=== PATIENT | male | born 1990 | race Caucasian/White ===

== ENCOUNTER 2016-11-14 07:31 | Emergency (ER) | payer MEDICAID ==
[2016-11-14] MEDS ORDERED: IBUPROFEN 800 MG TABLET PO STA (07:47)
[2016-11-14] MEDS ORDERED: IBUPROFEN 800 MG TABLET PO ONE (07:51)
== END 2016-11-14 08:37 | disposition home or self-care (01) ==
DX: M67.911 Unspecified disorder of synovium and tendon, right shoulder (principal); I10 Essential (primary) hypertension; F17.200 Nicotine dependence, unspecified, uncomplicated
CPT/HCPCS: 73030; 99283; A9270

== ENCOUNTER 2017-01-25 09:03 | Emergency (ER) | payer MEDICAID ==
[2017-01-25 09:08] VITALS: BP 128/83
--- NOTE | 2017-01-25 09:10 | ED Physician Documentation ---
PD HPI UPPER EXT INJURY - Stated complaint Stated Complaint: SHOULDER PX - History obtained from History obtained from: Patient - History of Present Illness Location: Right, Shoulder Type of injury: Other (has had some pains in shoulder with lifting and rotational movements. He was lifting not too heavy object overhead this morning and felt sudden abrupt pain in right shoulder. Hurts for any ROM. Pain mostly anterior shoulder. No fall nor direct impact.) Where injury occurred: Home Timing - onset: Today Timing - details: Abrupt onset, Still present Improved by: No: Rest Worsened by: Moving, Palpating Associated symptoms: No: Weakness, Numbness, Tingling Similar symptoms before: No diagnosis Recently seen: Not recently seen Review of Systems Constitutional: denies: Fever, Chills Skin: denies: Rash, Lesions Neurologic: denies: Focal weakness, Numbness PD PAST MEDICAL HISTORY - Past Medical History Past Medical History: Yes Cardiovascular: Hypertension - Past Surgical History Past Surgical History: No - Present Medications Home Medications: Ambulatory Orders Medication Instructions Recorded Confirmed Citalopram [CeleXA] 40 mg PO DAILY 11/14/16 01/25/17 Verapamil HCl 10 mg PO DAILY 11/14/16 01/25/17 Hydrocodone/Acetaminophen [[place] 1 each PO Q6H PRN #20 tablet 01/25/17 5-325 Tablet] Naproxen [Naprosyn] 500 mg PO BID #20 tablet 01/25/17 - Allergies Allergies/Adverse Reactions: Allergies Allergy/AdvReac Type Severity Reaction Status Date / Time No Known Drug Allergies Allergy Verified 10/11/15 09:00 - Social History Does the pt smoke?: Yes Smoking Status: Current every day smoker Does the pt drink ETOH?: Yes Does the pt have substance abuse?: No - Immunizations Immunizations are current?: Yes - POLST Patient has POLST: No PD ED PE NORMAL - Vitals Vital signs reviewed: Yes - General General: Alert and oriented X 3, Well developed/nourished, Other (appears in pain and has guarding of the right shoulder movement. ) - Neck Neck: Supple, no meningeal sign, No bony TTP - Cardiac Cardiac: RRR, No murmur - Respiratory Respiratory: Clear bilaterally - Derm Derm: Normal color, Warm and dry - Extremities Extremities: Other (right shoulder tender anteriorly and some laterally. Some at AC joint but no stepoff. Pain with any attempted ROM, so limited exam that way. ) - Neuro Neuro: Alert and oriented X 3, No motor deficit, No sensory deficit Results - Vitals Vitals: Vital Signs - 24 hr 01/25/17 09:06 Temperature 36.7 C Heart Rate 80 Respiratory 18 Rate Blood Pressure 128/83 H O2 Saturation 97 Oxygen O2 Source Room air - Rads (name of study) right shoulder Radiology: Prelim report reviewed (normal) PD MEDICAL DECISION MAKING - ED course Complexity details: considered differential (sounds like rotator cuff tendonitis leading up to this, and now likely tear of some of it. Will sling but cautioned quite well about having some ROM often during day to prevent adhesions. NSAIDs and pain meds. Will refer to Ortho for evaluation once current degree of pain has improved. ), d/w patient Departure - Departure Disposition: 01 Home, Self Care Clinical Impression: Shoulder pain, acute Qualifiers: Laterality: right Qualified Code(s): M25.511 - Pain in right shoulder Injury of right rotator cuff Qualifiers: Encounter type: initial encounter Qualified Code(s): S46.001A - Unspecified injury of muscle(s) and tendon(s) of the rotator cuff of right shoulder, initial encounter Condition: Stable Record reviewed to determine appropriate education?: Yes Instructions: ED Torn Rotator Cuff Follow-Up: Ricky Hicks MD [Provider Admit Priv/Credential] - Prescriptions: Naproxen [Naprosyn] 500 mg PO BID #20 tablet Hydrocodone/Acetaminophen [[place] 5-325 Tablet] 1 each PO Q6H PRN #20 tablet PRN Reason: Pain Comments: Use sling short term as needed for pain, with gentle range of motion several times daily to keep any injured fibers from adhering/healing to the joint capsule. Naproxen twice daily and add Tylenol or hydrocodone as needed for pains. Call Ortho today for a follow up appt in about a week. Limited use of the right shoulder for now to allow early healing. Forms: Activity restrictions Discharge Date/Time: 01/25/17 10:20
[2017-01-25] MEDS ORDERED: HYDROcod/ACETAM 5/325 MG TABLET PO STA (09:30)
[2017-01-25] MEDS ORDERED: HYDROcod/ACETAM 5/325 MG TABLET ONE (09:38)
--- NOTE | 2017-01-25 10:19 | XRAY Preliminary Report ---
Exam: XR Shoulder 3 View RT IMPRESSION: Negative three-view right shoulder radiography. [facility] SITE ID: [id number]
--- NOTE | 2017-01-25 10:21 | XRAY Report ---
EXAM: RIGHT SHOULDER RADIOGRAPHY EXAM DATE: 01/25/2017 09:59 AM. CLINICAL HISTORY: Shoulder pain when lifting overhead today. COMPARISON: None. TECHNIQUE: 3 views. FINDINGS: Bones: Normal. No fracture or bone lesion. Joints: The glenohumeral and acromioclavicular joints are normal. Soft tissues: The included hemithorax is unremarkable. No soft tissue calcification. IMPRESSION: Negative three-view right shoulder radiography. [facility] Referring Provider Line: [phone] SITE ID: [id number]
== END 2017-01-25 10:20 | disposition home or self-care (01) ==
LOC: ED 09:03
DX: S46.001A Unspecified injury of muscle(s) and tendon(s) of the rotator cuff of right shoulder, initial encounter (principal); X50.0XXA Overexertion from strenuous movement or load, initial encounter; Y93.89 Activity, other specified; Y92.009 Unspecified place in unspecified non-institutional (private) residence as the place of occurrence of the external cause; I10 Essential (primary) hypertension; F17.200 Nicotine dependence, unspecified, uncomplicated
CPT/HCPCS: 73030; 99283; A9270

== ENCOUNTER 2017-05-01 14:01 | Emergency (ER) | payer MEDICAID ==
[2017-05-01 14:17] VITALS: BP 132/91
--- NOTE | 2017-05-01 14:39 | ED Physician Documentation ---
History of Present Illness - Stated complaint Stated Complaint: R FOOT PX - Chief complaint Chief Complaint: Ext Problem - History obtained from History obtained from: Patient - History of Present Illness Timing: How many weeks ago (1) Pain level max: 4 Pain level now: 4 - Additonal information Additional information: Patient is a 26-year-old male who complains of right foot pain for the past week , worse with walking, better with rest. States he walks on a concrete floor all day. Does not recall any specific injuries. The pain is on the medial aspect of the foot, plantar aspect. Review of Systems Constitutional: denies: Fever Neurologic: denies: Focal weakness, Numbness PD PAST MEDICAL HISTORY - Past Medical History Cardiovascular: Hypertension - Past Surgical History Past Surgical History: No - Present Medications Home Medications: Ambulatory Orders Medication Instructions Recorded Confirmed Citalopram [CeleXA] 40 mg PO DAILY 11/14/16 05/01/17 Verapamil HCl 120 mg PO DAILY 11/14/16 05/01/17 Ibuprofen [Motrin] 800 mg PO Q8H PRN #30 tablet 05/01/17 - Allergies Allergies/Adverse Reactions: Allergies Allergy/AdvReac Type Severity Reaction Status Date / Time No Known Drug Allergies Allergy Verified 05/01/17 14:34 - Social History Does the pt smoke?: Yes Smoking Status: Current every day smoker Does the pt drink ETOH?: Yes Does the pt have substance abuse?: No - Immunizations Immunizations are current?: Yes - POLST Patient has POLST: No PD ED PE NORMAL - Vitals Vital signs reviewed: Yes - General General: Alert and oriented X 3, No acute distress - Derm Derm: Warm and dry - Extremities Extremities: Other (Right foot - Tender to palpation along the plantar aspects of the foot, mainly on the medial aspect. No significant bony tenderness. Mild swelling. No erythema.) - Neuro Neuro: Alert and oriented X 3 - Psych Psych: Normal mood, Normal affect Results - Vitals Vitals: Vital Signs - 24 hr 05/01/17 14:10 Temperature 36.6 C Heart Rate 76 Respiratory 16 Rate Blood Pressure 132/91 H O2 Saturation 98 Oxygen O2 Source Room air - Rads (name of study) Right foot x-ray Radiology: Prelim report reviewed, EMP read contemporaneously, See rad report ( No acute findings. Calcaneal bone spurs. ) PD MEDICAL DECISION MAKING - ED course Complexity details: reviewed results, re-evaluated patient, considered differential, d/w patient ED course: Patient is a 26-year-old male who presents to the emergency department with what appears to be plantar fasciitis. Placed in a postoperative shoe and crutches for comfort. Will prescribe pain medication for home and follow-up with his doctor for further evaluation and care. May benefit from physical therapy. Patient counseled regarding signs and symptoms for which I believe and urgent re-evaluation would be necessary. Patient with good understanding of and agreement to plan and is comfortable going home at this time This document was made in part using voice recognition software. While efforts are made to proofread this document, sound alike and grammatical errors may occur. Patient also counseled to obtain shoes with a harder sole as well as arch supports. Has very flat arches on exam Departure - Departure Disposition: 01 Home, Self Care Clinical Impression: Plantar fasciitis Heel spur Qualifiers: Laterality: right Qualified Code(s): M77.31 - Calcaneal spur, right foot Condition: Good Instructions: ED Plantar Fasciitis, ED Heel Spur Follow-Up: your,doctor in 1 week [Other] Prescriptions: Ibuprofen [Motrin] 800 mg PO Q8H PRN #30 tablet PRN Reason: PAIN &/OR FEVER Comments: You appear to have plantar fasciitis, this can take several months to heal. It is important that you follow-up with your doctor for further evaluation. You should wear arch supports in your shoes as this will help decrease the inflammation. Return if you worsen. Discharge Date/Time: 05/01/17 16:04
--- NOTE | 2017-05-01 15:18 | XRAY Preliminary Report ---
Exam: XR Foot 3 View RT IMPRESSION: No acute findings. Calcaneal bone spurs. [facility] SITE ID: [id number]
--- NOTE | 2017-05-01 15:20 | XRAY Report ---
EXAM: RIGHT FOOT RADIOGRAPHY EXAM DATE: 05/01/2017 03:09 PM. CLINICAL HISTORY: Pain in right foot for one week, no known injury or trauma. COMPARISON: None. TECHNIQUE: 3 views. FINDINGS: Bones: Normal. No fractures or bone lesions. Joints: Normal. No subluxations. Soft Tissues: Normal. No soft tissue swelling. Plantar and posterior calcaneal bone spurs. IMPRESSION: No acute findings. Calcaneal bone spurs. [facility] Referring Provider Line: [phone] SITE ID: [id number]
[2017-05-01] MEDS ORDERED: IBUPROFEN 800 MG TABLET PO STA (15:35)
[2017-05-01] MEDS ORDERED: IBUPROFEN 800 MG TABLET PO ONE (15:51)
== END 2017-05-01 16:04 | disposition home or self-care (01) ==
LOC: ED 14:01
DX: M72.2 Plantar fascial fibromatosis (principal); M77.31 Calcaneal spur, right foot; I10 Essential (primary) hypertension; F17.200 Nicotine dependence, unspecified, uncomplicated
CPT/HCPCS: 73630; 99283; A9270

== ENCOUNTER 2017-07-18 13:58 | Emergency (ER) | payer MEDICAID ==
--- NOTE | 2017-07-18 15:25 | XRAY Preliminary Report ---
Exam: XR FOOT 3 VIEW RT IMPRESSION: No fracture or bony destruction. [facility] SITE ID: [id number]
--- NOTE | 2017-07-18 15:28 | XRAY Report ---
EXAM: RIGHT FOOT RADIOGRAPHY EXAM DATE: 07/18/2017 03:16 PM. CLINICAL HISTORY: Trauma and pain over mid foot and arch . COMPARISON: None. TECHNIQUE: 3 views. FINDINGS: Bones: No acute or subacute fracture is visualized. No bony destruction. Joints: Joint space and alignment appear satisfactory. The third cuneiform metatarsal joint is not se en and may be fused. Soft Tissues: There is a moderate-sized plantar calcaneal spur. IMPRESSION: No fracture or bony destruction. [facility] Referring Provider Line: [phone] SITE ID: [id number]
--- NOTE | 2017-07-18 15:40 | ED Physician Documentation ---
History of Present Illness - Stated complaint Stated Complaint: FT PX - Chief complaint Chief Complaint: Ext Problem - History obtained from History obtained from: Patient (pt here for evaluation of right foot pain. he states that approx 1 month ago he dropped anobject on his right foot. he came to the ER at that time and was told that he did not have a fracture. he states that he has had pain on the top of the foot and over the arch that has been worsening since then. he has had a walking shoe but that has not helped.) Review of Systems Constitutional: denies: Fever, Chills Skin: denies: Rash, Lesions Musculoskeletal: reports: Extremity pain (right foot), Joint pain (right ankle) , Pain with weight bearing. denies: Joint swelling Neurologic: reports: Other (no numbness or tingling to the right foot.). denies : Generalized weakness, Focal weakness PD PAST MEDICAL HISTORY - Past Medical History Cardiovascular: Hypertension - Past Surgical History Past Surgical History: No - Present Medications Home Medications: Ambulatory Orders Medication Instructions Recorded Confirmed Citalopram [CeleXA] 40 mg PO DAILY 11/14/16 07/18/17 Verapamil HCl 120 mg PO DAILY 11/14/16 07/18/17 - Allergies Allergies/Adverse Reactions: Allergies Allergy/AdvReac Type Severity Reaction Status Date / Time No Known Drug Allergies Allergy Verified 07/18/17 14:06 - Social History Does the pt smoke?: Yes Smoking Status: Current every day smoker Does the pt drink ETOH?: Yes Does the pt have substance abuse?: No - Immunizations Immunizations are current?: Yes - POLST Patient has POLST: No PD ED PE NORMAL - Vitals Vital signs reviewed: Yes - General General: Alert and oriented X 3 - Cardiac Cardiac: Strong equal pulses (DP) - Derm Derm: Normal color, Warm and dry, No rash - Extremities Extremities: No deformity, No edema, Other (pt with TTP over the dorsum of the foot and over the arch of the right foot. Pain with ext of the great toe and ext of the ankle. ) - Neuro Neuro: Alert and oriented X 3, No sensory deficit, Normal speech, Other ( sensation intact to the right foot. ) Results - Vitals Vitals: Vital Signs - 24 hr 07/18/17 14:02 Temperature 36.6 C Heart Rate 93 Respiratory 18 Rate Blood Pressure 139/88 H O2 Saturation 98 Oxygen O2 Source Room air - Rads (name of study) right foot Radiology: Final report received PD MEDICAL DECISION MAKING - ED course Complexity details: d/w patient ED course: pt with trauma to the foot 3-4 weeks ago. no fx today. no skin changes. has TTP over the area. his exam is not C/W compartment syndrome. considered start of RSD. discussed with pt. will place in walking boot for comfort. pt is to call his PCM to discuss ortho consult Departure - Departure Disposition: 01 Home, Self Care Clinical Impression: Contusion, foot Condition: Good Instructions: Bruises Contusions, RICE Follow-Up: Primary, care provider [Other] Comments: use the walking boot for your comfort. Call to find out who your primary care provider is so that you can discuss a consult to see ortho.
[2017-07-18 15:56] VITALS: BP 136/74
== END 2017-07-18 15:56 | disposition home or self-care (01) ==
LOC: ED 13:58
DX: S90.31XA Contusion of right foot, initial encounter (principal); W20.8XXA Other cause of strike by thrown, projected or falling object, initial encounter; I10 Essential (primary) hypertension; F17.200 Nicotine dependence, unspecified, uncomplicated
CPT/HCPCS: 99282; 99283

== ENCOUNTER 2017-09-25 09:57 | Outpatient (CLI) | payer MEDICAID ==
--- NOTE | 2017-09-25 17:35 | XRAY Report ---
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 FINDINGS: Frontal and lateral views of the chest demonstrate a normal cardiac silhouette. The lungs are clear. No effusion or pneumothorax is present. IMPRESSION: NORMAL CHEST. NO EVIDENCE OF ACTIVE TUBERCULOSIS. TD: 09/25/2017 17:34
== END 2017-09-25 09:58 | disposition home or self-care (01) ==
LOC: DI 09:57
PROVIDERS: ATTEND Physician Assistant Medical
DX: R76.11 Nonspecific reaction to tuberculin skin test without active tuberculosis (principal)
CPT/HCPCS: 71046

== ENCOUNTER 2019-05-08 15:12 | Emergency (ER) | payer MEDICAID ==
[2019-05-08 17:03] LABS: BASOPHILS # (AUTO) 0.1 10^3/uL (0.0-0.1); BASOPHILS % (AUTO) 0.9 %; EOSINOPHILS # (AUTO) 0.8 10^3/uL (0.0-0.7); EOSINOPHILS % (AUTO) 6.8 %; HGB - HEMOGLOBIN 14.5 g/dL (14.0-18.0); LYMPHOCYTES # (AUTO) 3.2 10^3/uL (1.5-3.5); LYMPHOCYTES % (AUTO) 28.2 %; MEAN CORPUSCULAR HEMOGLOBIN 27.4 pg (27.0-31.0); MEAN CORPUSCULAR HGB CONC 32.5 g/dL (32.0-36.0); MEAN CORPUSCULAR VOLUME 84.2 fL (80.0-94.0); MEAN PLATELET VOLUME 11.3 fL (7.4-11.4); MONOCYTES # (AUTO) 0.8 10^3/uL (0.0-1.0); MONOCYTES % (AUTO) 6.9 %; NEUTROPHILS # (AUTO) 6.4 10^3/uL (1.5-6.6); NEUTROPHILS % (AUTO) 56.8 %; PLT - PLATELET COUNT 243 10^3/uL (130-450); RED CELL DISTRIBUTION WIDTH 14.1 % (12.0-15.0); WHITE BLOOD COUNT 11.3 x10^3/uL (4.8-10.8)
--- NOTE | 2019-05-08 17:06 | ED Physician Documentation ---
PD HPI FOCAL NEURO - Stated complaint Stated Complaint: SOA - Chief complaint Chief Complaint: Neuro - History obtained from History obtained from: Patient - History of Present Illness Timing - onset: Today (28-year-old gentleman with history of potential stroke causing no residual symptoms but he did get TPA. This was about 3 years ago. He was at work today at 2pm and developed substernal chest pain. Subsequently got a headache and left arm numbness. Now he feels mostly better but just feels very fatigued. The pains are all gone.) Review of Systems Ten Systems: 10 systems reviewed and negative Constitutional: denies: Fever, Chills Nose: denies: Rhinorrhea / runny nose, Congestion Cardiac: denies: Palpitations Respiratory: denies: Cough GI: denies: Abdominal Pain, Abdominal Swelling, Nausea, Vomiting PD PAST MEDICAL HISTORY - Past Medical History Cardiovascular: Hypertension - Past Surgical History Past Surgical History: No - Present Medications Home Medications: Ambulatory Orders Medication Instructions Recorded Confirmed Citalopram [CeleXA] 40 mg PO DAILY 11/14/16 07/18/17 Verapamil HCl 120 mg PO DAILY 11/14/16 07/18/17 - Allergies Allergies/Adverse Reactions: Allergies Allergy/AdvReac Type Severity Reaction Status Date / Time No Known Drug Allergies Allergy Verified 05/08/19 15:14 - Social History Does the pt smoke?: Yes Smoking Status: Current every day smoker Does the pt drink ETOH?: Yes Does the pt have substance abuse?: No - Immunizations Immunizations are current?: Yes - POLST Patient has POLST: No PD ED PE NORMAL - Vitals Vital signs reviewed: Yes - General General: Alert and oriented X 3, No acute distress - HEENT HEENT: PERRL, EOMI - Neck Neck: Supple, no meningeal sign, No bony TTP - Cardiac Cardiac: RRR, No murmur - Respiratory Respiratory: No respiratory distress, Clear bilaterally - Abdomen Abdomen: Soft, Non tender - Back Back: No CVA TTP, No spinal TTP - Derm Derm: Normal color, Warm and dry - Extremities Extremities: No deformity, No edema, No calf tenderness / cord NIHSS - Time Time: 16:55 - Level of Consciousness Level of consciousness: (0) Alert, Keenly responsive LOC Questions: (0) Answers both Q's correct LOC Commands: (0) Performs both correctly - Gaze Best Gaze: (0) Normal - Visual Visual: (0) No loss - Facial Palsy Facial Palsy: (0) Normal, symmetrical movement - Motor Arms (both separate) Motor Arm (right): (0) No drift Motor Arm (left): (0) No drift - Motor Legs (both separate) Motor Leg (right): (0) No drift Motor Leg (left): (0) No drift - Limb Ataxia Limb Ataxia: (0) Absent - Sensory Sensory: (0) Normal - Best Language Best Language: (0) No aphasia - Dysarthria Dysarthria: (0) Normal - Extinction and Inattention (formally neg Extinction and inattention: (0) No abnormality - Total Score/Results Total Score/Result: 0 Results - Vitals Vitals: Vital Signs - 24 hr 05/08/19 05/08/19 15:14 17:36 Temperature 36.5 C Heart Rate 72 61 Respiratory 16 15 Rate Blood Pressure 142/92 H 139/100 H O2 Saturation 100 95 Oxygen O2 Source Room air - EKG (time done) 1519 Rate: Rate (enter#) (72) Rhythm: NSR [place]: Normal Intervals: Normal NM QRS: Normal Ischemia: Normal ST segments Computer interpretation: Agree with computer - Labs Labs: Laboratory Tests 05/08/19 05/08/19 05/08/19 16:42 16:42 16:42 WBC 11.3 H RBC 5.30 Hgb 14.5 Hct 44.6 MCV 84.2 MCH 27.4 MCHC 32.5 RDW 14.1 Plt Count 243 MPV 11.3 Neut # (Auto) 6.4 Lymph # (Auto) 3.2 [place] # (Auto) 0.8 Eos # (Auto) 0.8 H Baso # (Auto) 0.1 Absolute Nucleated RBC 0.00 Nucleated RBC % 0.0 Sodium 138 Potassium 4.4 Chloride 105 Carbon Dioxide 25 Anion Gap 8.0 BUN 15 Creatinine 0.9 Estimated GFR (MDRD) 100 Glucose 94 Calcium 10.0 Total Bilirubin 0.3 AST 26 ALT 32 Alkaline Phosphatase 86 Troponin I High Sens < 2.3 L Total Protein 8.0 Albumin 4.6 Globulin 3.4 Albumin/Globulin Ratio 1.4 Lipase 26 - Rads (name of study) CT head Radiology: EMP read contemporaneously (NAD) PD MEDICAL DECISION MAKING - ED course ED course: 28-year-old gentleman with history of early CVA presents with an odd episode comprised of chest pain and headache. His exam now is normal and he is feeling much better. Given his history though work-up was done with negative diagnostics. He continued to be symptom-free here. Departure - Departure Disposition: 01 Home, Self Care Clinical Impression: Chest pain Qualifiers: Chest pain type: unspecified Qualified Code(s): R07.9 - Chest pain, unspecified Condition: Good Record reviewed to determine appropriate education?: Yes Instructions: ED Chest Pain NonCardiac Comments: Return for new or worsening symptoms or if any of your symptoms recur. Follow- up with your doctor, next available appointment. As discussed try to quit smoking. Forms: Activity restrictions
[2019-05-08 17:08] LABS: ALBUMIN 4.6 g/dL (3.2-5.5); ALBUMIN/GLOBULIN RATIO 1.4 (1.0-2.2); BILIRUBIN,TOTAL 0.3 mg/dL (0.2-1.0); CREATININE 0.9 mg/dL (0.6-1.2)
--- NOTE | 2019-05-08 17:51 | CT Report ---
Reason: headache Procedure Date: 05/08/2019 Accession Number: [id number] / [id number] Procedure: CT - HEAD WO CPT Code: FULL RESULT: EXAM: CT HEAD EXAM DATE: 05/08/2019 05:12 PM. CLINICAL HISTORY: Headache. Nausea. Dizziness. COMPARISON: HEAD ANGIO 06/26/2016 10:35 AM. TECHNIQUE: Multiaxial CT images were obtained from the foramen magnum to the vertex. Reformats: Sagittal and coronal. IV contrast: None. In accordance with CT protocol optimization, one or more of the following dose reduction techniques were utilized for this exam: automated exposure control, adjustment of mA and/or KV based on patient size, or use of iterative reconstructive technique. FINDINGS: Parenchyma: No intraparenchymal hemorrhage. No evidence of mass, midline shift, or CT findings of infarction. [place]-white differentiation is distinct. Extraaxial Spaces: Normal for age. No subdural or epidural collections identified. Ventricles: Normal in size and position. Sinuses and Orbits: Imaged paranasal sinuses, orbits, and mastoids show no significant abnormality. Bones: No evidence of fracture or calvarial defect. Other: None. IMPRESSION: Normal head CT. [facility]
[2019-05-08 18:13] VITALS: BP 146/87
== END 2019-05-08 18:12 | disposition home or self-care (01) ==
LOC: ED 15:12
DX: R07.89 Other chest pain (principal); R51 Headache; Z86.73 Personal history of transient ischemic attack (TIA), and cerebral infarction without residual deficits; I10 Essential (primary) hypertension; F17.200 Nicotine dependence, unspecified, uncomplicated
CPT/HCPCS: 36415; 70450; 80053; 83690; 84484; 85025; 93005; 99283; 99284

== ENCOUNTER 2019-05-16 13:26 | Emergency (ER) | payer MEDICAID ==
[2019-05-16] MEDS ORDERED: HYDROcod/ACETAM 5/325 MG TABLET PO STA (13:39)
--- NOTE | 2019-05-16 13:42 | ED Physician Documentation ---
PD HPI NECK PAIN - Stated complaint Stated Complaint: BACK/NECK PX - Chief complaint Chief Complaint: Back Pain - History obtained from History obtained from: Patient - History of Present Illness Timing - onset: Other (28-year-old gentleman with history of CVA has had a tough couple of weeks with neck and back pain. I saw him a while back for neck pain, seems like sternocleidomastoid spasm. Now his pain is more in the midline and hurts with extension of the neck. He denies fevers. There are no neurologic symptoms such as weakness, numbness, or tingling in the extremities with it.) Review of Systems Constitutional: denies: Fever, Chills Nose: denies: Rhinorrhea / runny nose, Congestion Throat: denies: Sore throat Cardiac: denies: Chest pain / pressure, Palpitations Respiratory: denies: Dyspnea, Cough PD PAST MEDICAL HISTORY - Past Medical History Cardiovascular: Hypertension Neuro: CVA - Past Surgical History Past Surgical History: No - Present Medications Home Medications: Ambulatory Orders Medication Instructions Recorded Confirmed Citalopram [CeleXA] 40 mg PO DAILY 11/14/16 07/18/17 Verapamil HCl 120 mg PO DAILY 11/14/16 07/18/17 Cyclobenzaprine [Flexeril] 10 mg PO TID PRN #20 tablet 05/09/19 Hydrocodone/Acetaminophen 1 - 2 each PO Q6H PRN #14 tablet 05/09/19 [Hydrocodon-Acetaminophen 5-325] Hydrocodone/Acetaminophen 1 - 2 each PO Q6H PRN #14 tablet 05/16/19 [Hydrocodon-Acetaminophen 5-325] - Allergies Allergies/Adverse Reactions: Allergies Allergy/AdvReac Type Severity Reaction Status Date / Time No Known Drug Allergies Allergy Verified 05/16/19 13:29 - Social History Does the pt smoke?: Yes Smoking Status: Current every day smoker Does the pt drink ETOH?: Yes Does the pt have substance abuse?: No - Immunizations Immunizations are current?: Yes - POLST Patient has POLST: No PD ED PE NORMAL - Vitals Vital signs reviewed: Yes - General General: Alert and oriented X 3, No acute distress - Neck Neck: Other (He is tender in the midline of the cervical spine especially low down. He has pain with flexion and extension of the neck, more so with extension. Now there is no muscular pain of the sternocleidomastoid as there was on the last visit but he does have some muscular tenderness of the parathoracic muscles near the shoulder blades especially on the right. 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, thumb extension, interosseous strength, flexion extension of the wrist as well as symmetric upper extremity reflexes throughout.) - Cardiac Cardiac: RRR, No murmur - Respiratory Respiratory: No respiratory distress, Clear bilaterally - Abdomen Abdomen: Normal bowel sounds, Soft, Non tender - Back Back: No CVA TTP - Derm Derm: Normal color, Warm and dry - Extremities Extremities: No edema, No calf tenderness / cord - Neuro Neuro: Alert and oriented X 3, Normal speech Results - Vitals Vitals: Vital Signs - 24 hr 05/16/19 13:29 Temperature 36.5 C Heart Rate 92 Respiratory 16 Rate Blood Pressure 149/96 H O2 Saturation 100 Oxygen O2 Source Room air - Labs Labs: Laboratory Tests 05/16/19 05/16/19 05/16/19 13:50 13:50 13:50 WBC 14.8 H RBC 5.12 Hgb 14.1 Hct 43.2 MCV 84.4 MCH 27.5 MCHC 32.6 RDW 14.1 Plt Count 224 MPV 10.5 Neut # (Auto) 10.0 H Lymph # (Auto) 3.0 Parker # (Auto) 1.0 Eos # (Auto) 0.6 Baso # (Auto) 0.1 Absolute Nucleated RBC 0.00 Nucleated RBC % 0.0 ESR 1 Sodium 141 Potassium 3.6 Chloride 107 Carbon Dioxide 22 Anion Gap 12.0 BUN 16 Creatinine 1.1 Estimated GFR (MDRD) 79 L Glucose 98 Calcium 9.0 C-Reactive Protein < 1.0 - Rads (name of study) CTA neck Radiology: EMP read contemporaneously (NAD) PD MEDICAL DECISION MAKING - ED course ED course: 28-year-old gentleman with history of CVA presents with persistent neck and back pain. Given the history of CVA concern for a vascular etiology was sought and a CTA was performed but negative for same. Otherwise clinically this seems most consistent with musculoskeletal etiology. Departure - Departure Disposition: 01 Home, Self Care Clinical Impression: Neck pain Condition: Good Record reviewed to determine appropriate education?: Yes Instructions: ED Neck Pain No Trauma Prescriptions: Hydrocodone/Acetaminophen [Hydrocodon-Acetaminophen 5-325] 1 - 2 each PO Q6H PRN #14 tablet PRN Reason: pain Comments: The CAT scan of your neck was negative, no evidence of a bony or vascular issue. Follow-up with your physician, I recommend they refer you to physical therapy. Return for new or worsening symptoms. Your blood pressure was elevated today on check into the emergency department. This does not mean that you have hypertension, it is a common phenomenon to come to the emergency department and have elevated blood pressure. I recommend that you see your primary care physician within the week to have it rechecked when you are feeling better. Do not drink or drive while taking narcotic pain medication. Note that many narcotic pain relievers also contain Tylenol/acetaminophen. Please ensure that your total dose of acetaminophen from all sources does not exceed 3 g (3000 mg) per day. You may get constipated while on this medication. Take a stool softener such as Colace twice a day while you are on it. Also add an [id number]-[id number] laxative such as senna or MiraLAX on any day that you do not have a bowel movement. If you received a narcotic pain medication or sedative while in the emergency department, do not drive for the next 24 hours.
[2019-05-16] MEDS ORDERED: IOVERSOL 320 100 ML VIAL IVP ONE ×2 (13:57→14:39)
[2019-05-16 14:05] LABS: BASOPHILS # (AUTO) 0.1 10^3/uL (0.0-0.1); BASOPHILS % (AUTO) 0.6 %; EOSINOPHILS # (AUTO) 0.6 10^3/uL (0.0-0.7); EOSINOPHILS % (AUTO) 4.1 %; HGB - HEMOGLOBIN 14.1 g/dL (14.0-18.0); LYMPHOCYTES % (AUTO) 20.4 %; MEAN CORPUSCULAR HEMOGLOBIN 27.5 pg (27.0-31.0); MEAN CORPUSCULAR HGB CONC 32.6 g/dL (32.0-36.0); MEAN CORPUSCULAR VOLUME 84.4 fL (80.0-94.0); MEAN PLATELET VOLUME 10.5 fL (7.4-11.4); MONOCYTES % (AUTO) 6.5 %; NEUTROPHILS % (AUTO) 67.8 %; PLT - PLATELET COUNT 224 10^3/uL (130-450); RED BLOOD COUNT 5.12 10^6/uL (4.70-6.10); RED CELL DISTRIBUTION WIDTH 14.1 % (12.0-15.0); WHITE BLOOD COUNT 14.8 x10^3/uL (4.8-10.8)
[2019-05-16 14:23] LABS: BUN - BLOOD UREA NITROGEN 16 mg/dL (6-20); CARBON DIOXIDE - CO2 22 mmol/L (21-32); CHLORIDE 107 mmol/L (101-111); CREATININE 1.1 mg/dL (0.6-1.2); GFR - MDRD 79 (>89); GLUCOSE 98 mg/dL (70-100); SODIUM 141 mmol/L (135-145)
[2019-05-16 14:26] LABS: CRP - C-REACTIVE PROTEIN < 1.0 mg/dL (0-1.0)
[2019-05-16] MEDS: IOVERSOL 320 100 ML VIAL IVP ONE (14:45)
--- NOTE | 2019-05-16 15:16 | CT Report ---
Reason: neck pain, H/O CVA Procedure Date: 05/16/2019 Accession Number: [id number] / [id number] Procedure: CT - ANGIO NECK W CPT Code: FULL RESULT: EXAM: CT ANGIOGRAM NECK EXAM DATE: 05/16/2019 02:43 PM. CLINICAL HISTORY: Neck pain, history of CVA. COMPARISON: HEAD ANGIO 06/26/2016 10:35 AM NECK ANGIO 06/26/2016 10:35 AM HEAD W/O 05/08/2019 5:12 PM. TECHNIQUE: Routine axial helical imaging was performed from the skull base through the aortic arch. Reconstructions: Routine multiplanar 3D MIP reconstructions. IV Contrast: OPTI 320 80ML. Evaluation of arterial stenosis is based on a NASCET method of measurement. In accordance with CT protocol optimization, one or more of the following dose reduction techniques were utilized for this exam: automated exposure control, adjustment of mA and/or KV based on patient size, or use of iterative reconstructive technique. FINDINGS: There is subsegmental atelectasis demonstrated within the bilateral lung apices. There is respiratory motion superimposed on the images of the lung apices. There are multilevel mild degenerative changes of the cervical spine. There is a mucous retention cyst at the base of the right maxillary sinus. The imaged portions of the orbits are normal in appearance. The openings of the eustachian tubes are normally aerated. The torus tubarius are symmetric. The fossa of Rosenmuller is collapsed bilaterally. The bilateral parapharyngeal spaces exhibit normal fat densities. The palatine tonsils exhibit symmetric hypertrophy. The electronic test technician spaces exhibit symmetric densities. The bilateral submandibular glands exhibit symmetric size and enhancement. The extrinsic and the intrinsic muscles of the tongue exhibit symmetric densities. There is no significant adenopathy in the level IA joanna chain. There is no significant adenopathy within the bilateral level IB joanna chains. The free and fixed margins of the epiglottis are normal in appearance. The preepiglottic space and paraglottic spaces exhibit normal fat densities. The aryepiglottic folds and pyriform sinuses are symmetric. The false and true cords are normal in appearance. The subglottic space is normal. The bilateral thyroid lobes enhance symmetrically. There is a normal configuration of the aortic arch. This study is not optimized for the evaluation of cervical spine fracture. The right common carotid artery, carotid bulb, and extracranial right internal carotid artery are smooth and nonstenotic. The left common carotid artery, carotid bulb, and extracranial left internal carotid artery are smooth and nonstenotic. The right vertebral artery V1, V2, V3 segments are without flow limiting stenosis. The left vertebral artery V1, V2, and V3 segments are without flow limiting stenosis. The right vertebral artery intradural segment is smooth and nonstenotic. The left vertebral artery intradural segment is smooth and nonstenotic. The left posterior-inferior cerebellar artery is without flow-limiting stenosis. The right posterior inferior cerebellar artery is without flow-limiting stenosis. There is extensive quantum model and noise on the angiographic images of the head limiting the overall sensitivity. There is also mild superimposed motion. The basilar artery is without flow-limiting stenosis. There are small bilateral anterior inferior cerebellar arteries suggested. Overall, they are somewhat poorly demonstrated which is secondary to their small size. Therefore, their evaluation is limited. The right superior cerebellar artery is without flow-limiting stenosis. The left superior cerebellar artery is without flow-limiting stenosis. There is a small left posterior communicating artery. The left P1 and P2 segments of the left posterior cerebral artery are without flow-limiting stenosis. The right P1 and P2 segments of the right posterior cerebral artery are without flow-limiting stenosis. The right intracranial internal carotid artery is smooth and nonstenotic. The left intracranial internal carotid artery is smooth and nonstenotic. There is early bifurcation of the right M1 segment of the right middle cerebral artery. This is a common anatomical variant. The left M1 and proximal M2 segments of the left middle cerebral artery are smooth and nonstenotic. The right A1 segment is smooth and nonstenotic. The left A1 segment is smooth and nonstenotic. There is a small anterior communicating artery. The right A2 segment of the right anterior cerebral artery is smooth and nonstenotic. The left A2 segment of the left anterior cerebral artery is smooth and nonstenotic. There is normal enhancement within the deep venous sinuses. IMPRESSION: 1. There is no hemodynamically significant stenosis within the neck. There is no evidence of dissection.
[2019-05-16 15:52] VITALS: BP 170/107
== END 2019-05-16 15:40 | disposition home or self-care (01) ==
LOC: ED 13:26
DX: M54.2 Cervicalgia (principal); I10 Essential (primary) hypertension; F17.200 Nicotine dependence, unspecified, uncomplicated
CPT/HCPCS: 36415; 70498; 80048; 85025; 85651; 86140; 99283; 99284; A9270; Q9967

== ENCOUNTER 2020-03-26 16:02 | Emergency (ER) | payer MEDICAID ==
[2020-03-26] MEDS ORDERED: HYDROcod/ACETAM 5/325 MG TABLET PO STA (18:19)
[2020-03-26] MEDS ORDERED: PENICILLIN VK 250 MG TABLET PO STA (18:19)
--- NOTE | 2020-03-26 18:22 | ED Physician Documentation ---
History of Present Illness - Stated complaint Stated Complaint: JAW PX - RT SIDE - Chief complaint Chief Complaint: Heent - History obtained from History obtained from: Patient - History of Present Illness Timing: Today Pain level max: 10 Pain level now: 10 - Additonal information Additional information: Right upper dental pain, started today, worse with eating, drinking, talking. Worse with movement and palpation. Has poor dentition throughout. No fevers. No vomiting. Review of Systems Constitutional: denies: Fever, Chills Throat: denies: Sore throat Cardiac: denies: Chest pain / pressure Respiratory: denies: Cough GI: denies: Nausea, Vomiting, Diarrhea PD PAST MEDICAL HISTORY - Past Medical History Cardiovascular: Hypertension Neuro: CVA - Past Surgical History Past Surgical History: No - Present Medications Home Medications: Ambulatory Orders Medication Instructions Recorded Confirmed Citalopram [CeleXA] 40 mg PO DAILY 11/14/16 07/18/17 Verapamil HCl 120 mg PO DAILY 11/14/16 07/18/17 Cyclobenzaprine [Flexeril] 10 mg PO TID PRN #20 tablet 05/09/19 Hydrocodone/Acetaminophen 1 - 2 each PO Q6H PRN #14 tablet 05/09/19 [Hydrocodon-Acetaminophen 5-325] Hydrocodone/Acetaminophen 1 - 2 each PO Q6H PRN #14 tablet 05/16/19 [Hydrocodon-Acetaminophen 5-325] HYDROcod/ACETAM 5/325 [Chelsea 5/325] 1 - 2 ea PO Q6H PRN #14 tablet 03/26/20 Penicillin V Potassium 500 mg PO Q6HR #40 tablet 03/26/20 - Allergies Allergies/Adverse Reactions: Allergies Allergy/AdvReac Type Severity Reaction Status Date / Time No Known Drug Allergies Allergy Verified 03/26/20 16:09 - Social History Does the pt smoke?: Yes Smoking Status: Current every day smoker Does the pt drink ETOH?: Yes Does the pt have substance abuse?: No - Immunizations Immunizations are current?: Yes - POLST Patient has POLST: No PD ED PE NORMAL - Vitals Vital signs reviewed: Yes - General General: Alert and oriented X 3, No acute distress, Well developed/nourished - HEENT HEENT: Moist mucous membranes, Other (Poor dentition throughout. Several cracked molars on the right upper and right lower jaw. No drainable abscess. No facial swelling. Normal phonation. No trismus. No Nathan's angina.) - Neck Neck: Supple, no meningeal sign - Derm Derm: Warm and dry - Neuro Neuro: Alert and oriented X 3 Results - Vitals Vitals: Vital Signs - 24 hr 03/26/20 03/26/20 16:06 18:58 Temperature 36.9 C 36.8 C Heart Rate 73 75 Respiratory 17 16 Rate Blood Pressure 148/98 H 140/89 H O2 Saturation 97 98 Oxygen O2 Source Room air PD MEDICAL DECISION MAKING - ED course Complexity details: considered differential, d/w patient ED course: Patient with dental pain and dental caries. No evidence of a drainable abscess. No facial cellulitis. Normal phonation. No trismus. We will place on antibiotics and have him follow-up with a dentist. Patient counseled regarding signs and symptoms for which I believe and urgent re-evaluation would be necessary. Patient with good understanding of and agreement to plan and is comfortable going home at this time This document was made in part using voice recognition software. While efforts are made to proofread this document, sound alike and grammatical errors may occ ur. Departure - Departure Disposition: 01 Home, Self Care Clinical Impression: Pain due to dental caries Condition: Good Instructions: ED Tooth Pain Follow-Up: your,dentist within 3 days. [Other] Prescriptions: Penicillin V Potassium 500 mg PO Q6HR #40 tablet HYDROcod/ACETAM 5/325 [Chelsea 5/325] 1 - 2 ea PO Q6H PRN #14 tablet PRN Reason: Pain Comments: Take all antibiotics until gone. Follow-up with your dentist as soon as possible. Do not drink alcohol or drive while on narcotic pain medicine. Note that many narcotic pain relievers also contain tylenol/acetaminophen. Please ensure that your total dose of acetaminophen from all sources does not exceed 3 grams (3000mg) per day. You may constipated on this medication, take a stool softener such as "Colace" twice a day while you are on it. Also recommend a labo-qxg-cyhrmmf laxative such as senna or MiraLAX any day that you do not have a bowel movement. If you received narcotic pain medication in the emergency department, do not drive or operate machinery for the next 24 hours. Discharge Date/Time: 03/26/20 19:00
[2020-03-26 19:00] VITALS: BP 140/89
== END 2020-03-26 19:00 | disposition home or self-care (01) ==
LOC: ED 16:02
DX: K02.9 Dental caries, unspecified (principal); F17.200 Nicotine dependence, unspecified, uncomplicated
CPT/HCPCS: 99282; 99284; A9270

== ENCOUNTER 2021-01-21 03:23 | Emergency (ER) | payer MEDICAID ==
[2021-01-21 03:37] VITALS: BP 137/79
--- NOTE | 2021-01-21 03:51 | ED Physician Documentation ---
PD HPI LOWER EXT INJURY - Stated complaint Stated Complaint: L ANKLE INJ - Chief complaint Chief Complaint: Trauma Ext - History obtained from History obtained from: Patient - Additional information Additional information: Patient comes emergency department chief complaint of left ankle pain after missing a step while going down the stairs and twisting his ankle. Patient states that he has not injured in any other way. He states it hurts all across the front of the ankle and that while he has been able to walk some, he has a lot of pain with weightbearing. No prior injury to the ankle that the patient remembers. No other complaints at this time. Review of Systems Ten Systems: 10 systems reviewed and negative Constitutional: reports: Reviewed and negative Eyes: reports: Reviewed and negative Ears: reports: Reviewed and negative Nose: reports: Reviewed and negative Throat: reports: Reviewed and negative Cardiac: reports: Reviewed and negative Respiratory: reports: Reviewed and negative GI: reports: Reviewed and negative : reports: Reviewed and negative Skin: reports: Reviewed and negative Musculoskeletal: reports: Joint pain, Joint swelling, Pain with weight bearing Neurologic: reports: Reviewed and negative Psychiatric: reports: Reviewed and negative Endocrine: reports: Reviewed and negative Immunocompromised: reports: Reviewed and negative PD PAST MEDICAL HISTORY - Past Medical History Past Medical History: Yes Cardiovascular: Hypertension Neuro: CVA - Past Surgical History Past Surgical History: No - Present Medications Home Medications: Ambulatory Orders Medication Instructions Recorded Confirmed No Known Home Medications 01/21/21 01/21/21 - Allergies Allergies/Adverse Reactions: Allergies Allergy/AdvReac Type Severity Reaction Status Date / Time No Known Drug Allergies Allergy Verified 01/21/21 03:35 - Social History Does the pt smoke?: Yes Smoking Status: Current every day smoker Does the pt drink ETOH?: Yes Does the pt have substance abuse?: No - Immunizations Immunizations are current?: Yes - POLST Patient has POLST: No PD ED PE NORMAL - Vitals Vital signs reviewed: Yes - General General: Alert and oriented X 3, No acute distress, Well developed/nourished - HEENT HEENT: Atraumatic, PERRL, EOMI, Moist mucous membranes - Neck Neck: Supple, no meningeal sign - Cardiac Cardiac: Strong equal pulses - Respiratory Respiratory: No respiratory distress - Derm Derm: Warm and dry - Extremities Extremities: No deformity, Other (Lymphedema about bilateral malleoli. Point tenderness diffusely around bilateral malleoli across anterior portion of ankle. Limited range of motion, secondary to pain.) - Neuro Neuro: Alert and oriented X 3, No motor deficit, No sensory deficit - Psych Psych: Normal mood, Normal affect Results - Vitals Vitals: Vital Signs - 24 hr 01/21/21 03:25 Temperature 36.5 C Heart Rate 97 Respiratory 18 Rate Blood Pressure 137/79 H O2 Saturation 97 Oxygen O2 Source Room air - Rads (name of study) XR L ankle Radiology: EMP read indepedently (neg) PD MEDICAL DECISION MAKING - ED course Complexity details: reviewed results, re-evaluated patient, considered differential, d/w patient ED course: Patient was worked up with x-ray series of left ankle. Departure - Departure Disposition: 01 Home, Self Care Clinical Impression: Left ankle sprain Qualifiers: Encounter type: initial encounter Involved ligament of ankle: unspecified ligament Qualified Code(s): S93.402A - Sprain of unspecified ligament of left ankle, initial encounter Condition: Stable Instructions: ED Sprain Ankle W X Ray Comments: Your x-ray looks good. There is no evidence of any broken bones. You have most likely sprained your ankle. This injury will take anywhere from 2 to 4 weeks to heal. You may use the splint and crutches as needed. You may also bear weight as tolerated. If you are not feeling any better at all in the next 2 to 3 weeks, please schedule an appoint with your primary doctor. Otherwise, you may take ibuprofen and Tylenol to help with the discomfort, and should prop your foot up and apply an ice pack to your ankle to help with pain and swelling. Please avoid any strenuous or high impact activities, especially with weight and twisting, while your ankle is healing.
--- OUTSIDE RECORDS SUMMARY | 2021-01-21 04:37 | EXTERNAL MEDICAL SUMMARY RPT | Continuity of Care Document ---
:1990 Demographics Phone Unavailable Preferred Language Unknown Marital Status Unknown Baptism Affiliation Unknown Race Unknown Ethnic Group Unknown Author Organization [facility] Address [address] [place] [address] Phone Allergies Encounters Medications Problems Results
--- NOTE | 2021-01-21 08:25 | XRAY Report ---
PROCEDURE: Ankle 3 View LT INDICATIONS: Missed step injured L ankle, c/o pain TECHNIQUE: 3 views of the ankle were acquired. COMPARISON: None FINDINGS: Bones: No fractures or dislocations. Ankle mortise is normally aligned. No suspicious bony lesions . Well-defined plantar calcaneal enthesophyte is seen. Soft tissues: No tibiotalar joint effusion. Achilles tendon appears normal. IMPRESSION: No acute ankle fracture or dislocation. Plantar calcaneal enthesophyte. No discrepancies from preliminary reading. Reviewed by: Kang Koch MD on 01/21/2021 8:23 AM PDT Approved by: Kang Koch MD on 01/21/2021 8:23 AM PDT Station ID: [id number]
== END 2021-01-21 04:40 | disposition home or self-care (01) ==
LOC: ED 03:23
DX: S93.402A Sprain of unspecified ligament of left ankle, initial encounter (principal); X50.1XXA Overexertion from prolonged static or awkward postures, initial encounter; Y93.01 Activity, walking, marching and hiking; I10 Essential (primary) hypertension; F17.200 Nicotine dependence, unspecified, uncomplicated; M77.9 Enthesopathy, unspecified
CPT/HCPCS: 99282; 99283

== ENCOUNTER 2023-07-24 11:16 | Emergency (ER) | payer MEDICAID ==
[2023-07-24] MEDS ORDERED: KETOROLAC 60 MG/2 ML VIAL IM STA (11:43)
[2023-07-24] MEDS ORDERED: oxyCODONE 5 MG TABLET PO STA (11:43)
--- NOTE | 2023-07-24 11:46 | ED Physician Documentation ---
History of Present Illness - Stated complaint Stated Complaint: GLF/LT HAND NUMB,PX - Chief complaint Chief Complaint: Trauma Ext - History obtained from History obtained from: Patient, Family - History of Present Illness Timing: Yesterday Pain level max: 8 Pain level now: 8 - Additonal information Additional information: 33-year-old male presents to the emergency department after a ground-level fall yesterday at his friend's house. Landed on the left shoulder. He states increasing pain today. States the pain is severe but has not taken anything for pain at home. Worse with movement, better with rest. Occasionally has numbness and tingling to the left hand. He is not on blood thinners. No head, neck, back pain. Review of Systems Constitutional: denies: Fever, Chills GI: denies: Vomiting, Diarrhea Skin: denies: Rash Musculoskeletal: denies: Neck pain, Back pain Neurologic: denies: Focal weakness, Confused, Headache, Head injury, LOC PD PAST MEDICAL HISTORY - Past Medical History Past Medical History: Yes Cardiovascular: Hypertension Respiratory: None Neuro: CVA Endocrine/Autoimmune: None GI: None : None Psych: None Musculoskeletal: None Derm: None - Past Surgical History Past Surgical History: No - Present Medications Home Medications: Ambulatory Orders Medication Instructions Recorded Confirmed HYDROcod/ACETAM 5/325 [[place] 5/325] 1 - 2 ea PO Q6H PRN #20 tablet 07/24/23 Ibuprofen [Motrin] 800 mg PO Q8H PRN #30 tablet 07/24/23 - Allergies Allergies/Adverse Reactions: Allergies Allergy/AdvReac Type Severity Reaction Status Date / Time No Known Drug Allergies Allergy Verified 07/24/23 11:23 - Social History Does the pt smoke?: No Smoking Status: Former smoker Does the pt drink ETOH?: Yes Does the pt have substance abuse?: Yes Substance Use and Type: Marijuana - Immunizations Immunizations are current?: Yes - POLST Patient has POLST: No PD ED PE NORMAL - Vitals Vital signs reviewed: Yes - General General: Alert and oriented X 3, No acute distress - HEENT HEENT: Moist mucous membranes - Neck Neck: Supple, no meningeal sign - Respiratory Respiratory: No respiratory distress - Derm Derm: Warm and dry - Extremities Extremities: Other (L arm - Tender to palpation over left AC joint, limited range of motion of the left glenohumeral joint. No tenderness over the clavicle. Neurovascular intact. Axillary nerve intact. No gross deformity. Brisk cap refill. Normal pulses) - Neuro Neuro: Alert and oriented X 3 - Psych Psych: Normal mood, Normal affect Results - Vitals Vitals: Vital Signs - 24 hr 07/24/23 07/24/23 11:24 12:55 Temperature 36.9 C 36.1 C L Heart Rate 82 80 Respiratory 18 16 Rate Blood Pressure 154/114 H 176/108 H O2 Saturation 98 96 Oxygen O2 Source Room air - Rads (name of study) L shoulder xray Relevant Findings:: Final report received, See rad report PD Medical Decision Making - ED course Complexity details: reviewed results, re-evaluated patient, considered differential, d/w patient ED course: No acute findings on x-ray of the left shoulder. Placed in a sling for comfort. Will place on pain medications. Possible rotator cuff injury? We will have him follow-up with his PCP when the swelling and pain have decreased for repeat evaluation. Also given information regarding orthopedics. Neurovascular intact including the axillary nerve. No evidence of spinal fracture. No neuropraxia. No neurological deficits currently. Patient counseled regarding signs and symptoms for which I believe and urgent re-evaluation would be necessary. Patient with good understanding of and agreement to plan and is comfortable going home at this time This document was made in part using voice recognition software. While efforts are made to proofread this document, sound alike and grammatical errors may occur. Departure - Departure Disposition: 01 Home, Self Care Clinical Impression: Shoulder pain, left Qualifiers: Chronicity: acute Qualified Code(s): M25.512 - Pain in left shoulder Instructions: ED Sprain Shoulder Follow-Up: your,doctor in 1 week [Other] Orthopedic Care [Provider Group] Prescriptions: Ibuprofen [Motrin] 800 mg PO Q8H PRN #30 tablet PRN Reason: PAIN &/OR FEVER HYDROcod/ACETAM 5/325 [[place] 5/325] 1 - 2 ea PO Q6H PRN #20 tablet PRN Reason: Pain Comments: Your prescription was sent to [facility] in [place]. Please follow up with your doctor for further care. Wear the sling as needed for comfort. Your x-ray does not show any acute abnormalities today. You may have a rotator cuff injury that may be able to be benefited by physical therapy once the initial pain and discomfort has gone down. Do not wear the sling for longer than a week. I am prescribing a short course of narcotic pain medication for you. These are potentially dangerous and addictive medications that should be used carefully. These medications may constipate you. Take an yozu-llo-viwpexm stool softener (docusate) twice daily with plenty of water while taking these medications. If you go 24 hours without a bowel movement, take [id number]-[id number] miralax, per package instructions. Do not drink or drive while taking these medications. If you received narcotic or sedating medications while in the emergency department, do not drive for 24 hours. Store this medication in a safe, secure place and out of reach of children. It is a violation of federal law to give or sell this medication to another person or to use in a manner other than prescribed. The ED will not refill narcotic prescriptions, including prescriptions lost or stolen. To dispose of unwanted medications: 1. [facility] at [address] in [place] has a medication drop box. They accept prescription medications (in pill form) Sunday through Sunday 9:00 a.m. to 5:00 p.m. 2. [facility] [employer] accepts prescription medications (in pill form only) for disposal year round. Call for more information. 3. Contact the [facility] for the next [facility] sponsored prescription drug collection event. , [phone], or [phone]; Forms: PCP List, Activity restrictions Discharge Date/Time: 07/24/23 13:05
[2023-07-24 13:01] VITALS: BP 176/108; O2SAT 96
--- NOTE | 2023-07-24 13:05 | XRAY Report ---
PROCEDURE: Shoulder 3 View LT INDICATIONS: injury TECHNIQUE: 3 views of the shoulder were acquired. COMPARISON: None. FINDINGS: Bones: No fractures or dislocations. No suspicious bony lesions. Visualized ribs appear intact. Soft tissues: No suspicious soft tissue calcifications. The visualized lungs are within normal limi ts. IMPRESSION: No acute fracture. No osseous lesion. If symptoms and/or clinical suspicion for patholog y continue, further assessment with repeat plain films, or advanced imaging (e.g., CT, MRI, or bone s can) is recommended for further assessment. Reviewed by: Guanakito Gardiner MD on 07/24/2023 1:04 PM PST Approved by: Guanakito Gardiner MD on 07/24/2023 1:04 PM PST Station ID: [id number]
== END 2023-07-24 13:05 | disposition home or self-care (01) ==
LOC: ED 11:16
DX: M25.512 Pain in left shoulder (principal); I10 Essential (primary) hypertension; Z87.891 Personal history of nicotine dependence
CPT/HCPCS: 73030; 96372; 99283; A9270

== ENCOUNTER 2023-07-31 08:15 | Outpatient (CLI) | payer MEDICAID ==
--- NOTE | 2023-07-31 13:12 | XRAY Report ---
PROCEDURE: Shoulder 3 View LT INDICATIONS: LEFT SHOULDER PAIN TECHNIQUE: 3 views of the shoulder were acquired. COMPARISON: None. FINDINGS: Bones: No fractures or dislocations. No suspicious bony lesions. Visualized ribs appear intact. Soft tissues: No suspicious soft tissue calcifications. The visualized lungs are within normal limi ts. IMPRESSION: No acute bony abnormality. Reviewed by: Holden Brand MD on 07/31/2023 1:11 PM PST Approved by: Holden Brand MD on 07/31/2023 1:11 PM PST Station ID: [id number]
== END 2023-07-31 23:59 | disposition home or self-care (01) ==
LOC: DI.WOS 08:15
PROVIDERS: ATTEND Physician Assistant Surgical
DX: M25.512 Pain in left shoulder (principal)

== ENCOUNTER 2023-09-04 16:37 | Outpatient (CLI) | payer MEDICAID ==
--- NOTE | 2023-09-05 10:57 | MRI Report ---
PROCEDURE: SHOULDER WO - LT INDICATIONS: STRAIN OF SHOULDER TECHNIQUE: Noncontrast oblique coronal T2 fast spin echo with fat saturation, oblique sagittal T1 spin echo and T2 fast spin echo with fat saturation, axial T1 spin echo and T2 fast spin echo with fat saturation a nd 3-D gradient echo through the shoulder. COMPARISON: Left shoulder radiographs 07/31/2023 FINDINGS: Image quality: Excellent. Rotator cuff: Mild supraspinatus and infraspinatus tendinosis with low-grade bursal surface fraying. The teres minor tendon is intact. There is mild subscapularis tendinosis. The rotator cuff musculatur e is normal in bulk. Bones and bursae: Mild edema within the distal clavicle may be related to degenerative changes versus osseous contusion or chronic repetitive stress. No acute osseous fracture. Chronic traction cystic c hanges are seen in the posterosuperior humeral head and greater tuberosity. Mild degenerative changes of the acromioclavicular joint. Small amount of fluid is seen in the subacromial/subdeltoid bursa. N o significant glenohumeral effusion. Capsule and soft tissues: No displaced labral tear is seen. The proximal biceps long head tendon is intact. There is partial effacement of the normal fat in the rotator interval. The middle and inferio r glenohumeral ligaments appear thickened. IMPRESSION: 1.Mild osseous edema at the distal clavicle may be related to mild acromioclavicular joint osteoarthr osis versus a recent contusion or acromioclavicular separation injury, or distal clavicular osteolysi s. Acromioclavicular joint is normally aligned. 2.Low-grade bursal surface fraying of the distal supraspinatus and infraspinatus tendons. No signific ant rotator cuff tendon tear is seen. There is mild diffuse rotator cuff tendinosis. 3.Small subacromial/subdeltoid bursal effusion or mild bursitis. 4.Partial effacement of the rotator interval fat and mild thickening of the inferior glenohumeral lig ament are nonspecific, but can be seen in the setting of the clinical syndrome of adhesive capsulitis . Reviewed by: Edenilson Suarez MD on 09/05/2023 10:56 AM PST Approved by: Edenilson Suarez MD on 09/05/2023 10:56 AM PST Station ID: [id number]
== END 2023-09-04 16:38 | disposition home or self-care (01) ==
LOC: DI 16:37
PROVIDERS: ATTEND Physician Assistant Surgical
DX: M75.112 Incomplete rotator cuff tear or rupture of left shoulder, not specified as traumatic (principal); M75.82 Other shoulder lesions, left shoulder; M75.52 Bursitis of left shoulder; R93.6 Abnormal findings on diagnostic imaging of limbs